=== PATIENT | female | born 1985 | race African-American/Black ===

== ENCOUNTER 2017-04-03 20:09 | Emergency (ER) | payer SELFPAY ==
[2017-04-03] MEDS ORDERED: FAMOTIDINE INJ/PF 20 MG/2 ML SDV IV ONE (20:54)
[2017-04-03] MEDS ORDERED: DIPHENHYDRAMINE HCL 50 MG/ML VIAL IV ONE (20:54)
[2017-04-03] MEDS ORDERED: METHYLPREDNISOLONE INJ 125 MG/2 ML SDV IV ONE (20:54)
--- NOTE | 2017-04-03 20:56 | ER Document Report ---
ED General - General Chief Complaint: Numbness Stated Complaint: POSSIBLE ALLERGIC REACTION Time Seen by Provider: 04/03/17 20:35 Notes: Patient is a 32 year old female who presents to the ED via EMS complaining of right sided numbness and weakness. Patient states she was at work and had taken her zyprexa late at 7pm and then at 745pm, she started developing symptoms of right sided facial itching/numbness that then progress to her whole right side feeling numb. She states she went to the back to get something to drink b/c she thought her blood sugar was low, she states she had difficulty swallowing her drink, at that time she requested EMS be called. They arrived at 815pm, she received IV benadryl and had 75% improvment in her symptoms, she states the only remaining symptom was tinging around her mouth. She states she wasnt sure if this was an axiety attack which she is diagnosed with but has never had one present like this before. At this time, she states she feels better but not 100%. Still with residual tingling around her mouth and that it feels weird to talk. But denies any weakness, difficulty swallowing or speaking. LMP: 03/22/2017 PMH: hypoglycemia, bipolar, depression and anxiety PSH: nicole, gastric bypass, appendectomy SH: denies tobacco, etoh or drug use A: vicodin and toradol MEDS: lamictal, haldol, prozac and zyprexa. She states that the lamictal, haldol and zyprexa are all recently started, states that she has taken both lamictal and haldol before but is new to zyprexa TRAVEL OUTSIDE OF THE [place] IN LAST 30 DAYS: No Past Medical History - Social History Smoking Status: Never Smoker Family History: Reviewed & Not Pertinent Patient has suicidal ideation: No Patient has homicidal ideation: No Renal/ Medical History: Denies: Hx Peritoneal Dialysis Review of Systems - Review of Systems Notes: REVIEW OF SYSTEMS: CONSTITUTIONAL : Denies fever, chills, or sweats. Denies recent illness. EENT: Denies eye, ear, throat, or mouth pain or symptoms. Denies nasal or sinus congestion or discharge. Denies throat, tongue, or mouth swelling or difficulty swallowing. CARDIOVASCULAR: Denies chest pain. Denies palpitations or racing or irregular heart beat. Denies ankle edema. RESPIRATORY: Denies cough, cold, or chest congestion. Denies shortness of breath, difficulty breathing, or wheezing. GASTROINTESTINAL: Denies abdominal pain or distention. Denies nausea, vomiting , or diarrhea. Denies blood in vomitus, stools, or per rectum. Denies black, tarry stools. Denies constipation. GENITOURINARY: Denies difficulty urinating, painful urination, burning, frequency, blood in urine, or discharge. FEMALE GENITOURINARY: Denies vaginal bleeding, heavy or abnormal periods, irregular periods. Denies vaginal discharge or odor. MUSCULOSKELETAL: Denies any muscle spasms, difficulty walking, extremity pain SKIN: Denies rash, lesions or sores. HEMATOLOGIC : Denies easy bruising or bleeding. LYMPHATIC: Denies swollen, enlarged glands. NEUROLOGICAL: She HPI. Denies confusion or altered mental status. Denies passing out or loss of consciousness. Denies dizziness or lightheadedness. Denies headache. Denies problems with gait or speech. Denies numbness, or tingling. Denies seizures. PSYCHIATRIC: See HPI suicidal ideation, or homicidal ideation. ALL OTHER SYSTEMS REVIEWED AND NEGATIVE. Dictation was performed using [employer] voice recognition software Physical Exam - Vital signs Vitals: Temp Pulse Resp BP Pulse Ox 97.2 F 81 18 147/102 H 100 04/03/17 20:14 04/03/17 20:14 04/03/17 20:14 04/03/17 20:14 04/03/17 20:14 - General General appearance: Appears well, Alert In distress: None - HEENT Head: Normocephalic, Atraumatic Eyes: Normal Conjunctiva: Normal Extraocular movements intact: Yes Eyelashes: Normal Pupils: PERRL Ears: Normal External canal: Normal Tympanic membrane: Normal Sinus: Normal Nasal: Normal Mouth/Lips: Normal. No: Angioedema Mucous membranes: Normal Pharynx: Normal. No: Peritonsillar abscess, Retropharyngeal abscess, Potential airway comprom. Neck: Normal, Supple - Respiratory Respiratory status: No respiratory distress Chest status: Nontender Breath sounds: Normal Chest palpation: Normal - Cardiovascular Rhythm: Regular Heart sounds: Normal auscultation, S1 appreciated, S2 appreciated Murmur: No Gallop: None auscultated Pulses: Normal: Radial, Dorsalis pedis Normal capillary refill: Yes - Abdominal Inspection: Normal Distension: No distension Bowel sounds: Normal Tenderness: Nontender Organomegaly: No organomegaly - Extremities General upper extremity: Normal inspection, Nontender, Normal color, Normal ROM , Normal strength, Normal temperature General lower extremity: Normal inspection, Nontender, Normal color, Normal ROM , Normal strength, Normal temperature, Normal weight bearing. No: Ender's sign - Neurological Neuro grossly intact: Yes Cognition: Normal Orientation: AAOx4 [place] Coma Scale Eye Opening: Spontaneous [place] Coma Scale Verbal: Oriented [place] Coma Scale Motor: Obeys Commands Karolina Coma Scale Total: 15 Speech: Normal Cranial nerves: Normal. 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 No: Weakness Sensory: Normal - Psychological Associated symptoms: Normal affect, Normal mood. No: Anxious, Confused - Skin Skin Temperature: Warm Skin Moisture: Dry Skin Color: Normal Skin Turgor: Elastic Course - Re-evaluation Re-evalutation: 04/04/17 20:45 Patient is a 32-year-old female who is hemodynamically stable, no acute distress and afebrile. Presentation consistent with allergic reaction given symptoms subsided after benadryl. patient medicated for allergic reaction while work up pending. 04/04/17 01:13 Patient presents with symptoms consistent with an allergic reaction without anaphylaxis. Vitals otherwise within normal limits at time of arrival. No respiratory, GI, cardiovascular, or oral pharyngeal symptoms. Patient received solumedrol, benadryl and pepcid. This did resolve the patients symptoms 100%. Will recommend ongoing antihistamine therapy as an outpatient. No evidence of focal neurological defects, CT normal. At this time will discharge with return precautions and follow-up recommendations. Verbal discharge instructions given a the bedside and opportunity for questions given. Medication warnings reviewed. Patient is in agreement with this plan and has verbalized understanding of return precautions and the need for primary care follow-up in the next 24-72 hours. - Vital Signs Vital signs: Temp Pulse Resp BP Pulse Ox 97.2 F 95 18 149/93 H 99 04/03/17 20:14 04/03/17 23:00 04/03/17 23:00 04/03/17 23:00 04/03/17 23:00 - Laboratory Result Diagrams: 04/03/17 21:25 04/03/17 21:25 Laboratory results interpreted by me: 04/03/17 04/03/17 04/03/17 20:30 21:25 21:25 Hgb 11.6 L Hct 35.6 L RDW 14.1 H Carbon Dioxide 17 L AST 54 H Urine Blood SMALL H - Diagnostic Test Radiology reviewed: Image reviewed, Reports reviewed Discharge - Discharge Clinical Impression: Allergic reaction caused by a drug Qualifiers: Encounter type: initial encounter Qualified Code(s): T78.40XA - Allergy, unspecified, initial encounter Condition: Good Disposition: HOME, SELF-CARE Additional Instructions: Please stop taking your Zyprexa, follow up with Dr. Solomon on Tuesday regarding today's visit ACUTE ALLERGIC REACTION: Your symptoms are due to an allergic reaction. Allergy can cause hives, swelling of the hands, feet, and face, hoarseness, and difficulty swallowing or breathing. It may be due to exposure to medication, animal dander, foods, infection, or insect bites. Medication is a common cause, even when prior use of this same medication caused no problems. Acute treatment may include adrenalin and antihistamines. Usually, the specific allergic agent can't be identified unless repeated episodes occur. Home treatment includes the following: (1) Stop any suspicious medications. This will be discussed with you. (2) Oral antihistamines for the next four to five days. Example, diphenhydramine (Benadryl) every four hours. (3) You may also use cimetidine (Tagamet), ranitidine (Zantac), or famotidine ( Pepcid) every four hours if diphenhydramine is not controlling itching and hives. (4) Avoid aspirin until the hives completely disappear. (5) Avoid hot baths or showers until the hives are completely gone. Call the doctor if faintness, difficulty swallowing, tightness in the chest , or wheezing occurs. STEROID MEDICATION INJECTION: You have been given an injection of medicine of the cortisone/steroid class. This medication is used to control inflammation or allergy. It is often continued as a pill for a short period of time, until the acute process subsides. There are usually no side effects from short-term use of cortisone-like medications. Some persons feel an increased sense of well-being and are not sleepy at bedtime. Long-term use of cortisone medications is best avoided, unless required for a severe condition. If your condition does not remit, or relapses after the course of corticosteroid medication, you should consult your physician. ANTIHISTAMINES: An antihistamine has been given and/or prescribed to control your symptoms. Antihistamines are used for many reasons, including itching, watering eyes, runny nose, allergic swelling, hives, and insect stings. Antihistamines may cause drowsiness, especially with the first dose. Do not operate machinery or drive while under the effects of the medication. Other common side effects include dry mouth and eyes. In older persons, antihistamines can occasionally cause urinary retention, constipation, and trouble focusing the eyes. Do not combine the medication with alcohol, or with any other medication without talking to your doctor. FOLLOW-UP CARE: If you have been referred to a physician for follow-up care, call the physician s office for an appointment as you were instructed or within the next two days. If you experience worsening or a significant change in your symptoms, notify the physician immediately or return to the Emergency Department at any time for re-evaluation. Forms: Elevated Blood Pressure, Return to Work
[2017-04-03 21:51] LABS: ABSOLUTE BASOPHILS # (AUTO) 0.1 10^3/uL (0.0-0.2); ABSOLUTE EOSINOPHILS # (AUTO) 0.2 10^3/uL (0.0-0.6); ABSOLUTE LYMPHOCYTES (AUTO) 1.3 10^3/uL (0.5-4.7); ABSOLUTE MONOCYTES (AUTO) 0.5 10^3/uL (0.1-1.4); ABSOLUTE NEUT (AUTO) 2.5 10^3/uL (1.7-8.2); BASOPHILS % (AUTO) 1.1 % (0-2); EOSINOPHILS % (AUTO) 3.8 % (0-6); HEMATOCRIT 35.6 % (36.0-47.0); HEMOGLOBIN 11.6 g/dL (12.0-15.5); HGB HCT DIFFERENCE -0.8; LYMPHOCYTES % (AUTO) 28.2 % (13-45); MEAN CORPUSCULAR HEMOGLOBIN 27.1 pg (27.0-33.4); MEAN CORPUSCULAR HGB CONC 32.5 g/dL (32.0-36.0); MEAN CORPUSCULAR VOLUME 84 fl (80-97); MONOCYTES % (AUTO) 11.8 % (3-13); RED BLOOD COUNT 4.26 10^6/uL (3.72-5.28); RED CELL DISTRIBUTION WIDTH 14.1 % (11.5-14.0); SEGMENTED NEUTROPHILS % (AUTO) 55.1 % (42-78); WHITE BLOOD COUNT 4.5 10^3/uL (4.0-10.5)
[2017-04-03 21:52] LABS: ALANINE AMINOTRANSFERASE 47 U/L (9-52); ALBUMIN 4.4 g/dL (3.5-5.0); ALKALINE PHOSPHATASE 84 U/L (38-126); ANION GAP 14 (5-19); ASPARTATE AMINO TRANSFERASE 54 U/L (14-36); BILIRUBIN,DIRECT 0.4 mg/dL (0.0-0.4); BILIRUBIN,TOTAL 0.4 mg/dL (0.2-1.3); BLOOD UREA NITROGEN 11 mg/dL (7-20); CALCIUM 9.3 mg/dL (8.4-10.2); CARBON DIOXIDE 17 mmol/L (22-30); CHLORIDE 106 mmol/L (98-107); CREATININE RESULT 0.83 mg/dL (0.52-1.25); GLUCOSE 78 mg/dL (75-110); SODIUM 137.4 mmol/L (137-145)
[2017-04-03 22:04] LABS: APPEARANCE,URINE CLEAR; BILIRUBIN,URINE NEGATIVE (NEGATIVE); GLUCOSE, URINE NEGATIVE (NEGATIVE); KETONES,URINE NEGATIVE (NEGATIVE); LEUKOCYTE ESTERASE,URINE NEGATIVE (NEGATIVE); NITRITE,URINE NEGATIVE (NEGATIVE); PROTEIN,URINE NEGATIVE (NEGATIVE); UROBILINOGEN,URINE NEGATIVE mg/dL (<2.0)
--- NOTE | 2017-04-03 22:08 | RADIOLOGY REPORT (SQ) ---
EXAM DESCRIPTION: CT HEAD WITHOUT COMPLETED DATE/TIME: 04/03/2017 9:51 pm REASON FOR STUDY: right sided numbness COMPARISON: None. TECHNIQUE: Axial images acquired through the brain without intravenous contrast. Images reviewed wi th bone, brain and subdural windows. Images stored on PACS. All CT scanners at this facility use dose modulation, iterative reconstruction, and/or weight based d osing when appropriate to reduce radiation dose to as low as reasonably achievable (ALARA). [facility]: Dose Right [facility]: CareDose [facility]: Dose Right [facility]: Teradose 4D [facility]: Smart Technologies RADIATION DOSE: Up-to-date CT equipment and radiation dose reduction techniques were employed. CTDIv ol: 64.6 mGy. DLP: 1163 mGy-cm. mGy. LIMITATIONS: None. FINDINGS: VENTRICLES: Normal size and contour. CEREBRUM: No masses. No hemorrhage. No midline shift. No evidence for acute infarction. Normal gra y/white matter differentiation. No areas of low density in the white matter. CEREBELLUM: No masses. No hemorrhage. No alteration of density. No evidence for acute infarction. EXTRAAXIAL SPACES: No fluid collections. No masses. ORBITS AND GLOBE: No intra- or extraconal masses. Normal contour of globe without masses. CALVARIUM: No fracture. PARANASAL SINUSES: No fluid or mucosal thickening. SOFT TISSUES: No mass or hematoma. OTHER: No other significant finding. IMPRESSION: NORMAL BRAIN CT WITHOUT CONTRAST. COMMENT: Quality ID # [id number]: Final reports with documentation of one or more dose reduction techniques (e.g., Automated exposure control, adjustment of the mA and/or kV according to patient size, use of iterative reconstruction technique) TECHNICAL DOCUMENTATION: JOB ID: [id number]- All Rights Reserved
[2017-04-03 23:19] VITALS: BP 149/93
--- NOTE | 2017-04-03 23:25 | EKG REPORT ---
SEVERITY:- BORDERLINE ECG - SINUS RHYTHM PROBABLE LEFT ATRIAL ABNORMALITY : Confirmed by: Sarah Tavarez 03-Apr-2017 23:24:24
== END 2017-04-03 23:00 | disposition home or self-care (01) ==
LOC: ER 20:09
DX: R20.0 Anesthesia of skin (principal); R53.1 Weakness; Z79.899 Other long term (current) drug therapy; F31.9 Bipolar disorder, unspecified; F32.9 Major depressive disorder, single episode, unspecified; F41.9 Anxiety disorder, unspecified; T78.40XA Allergy, unspecified, initial encounter; X58.XXXA Exposure to other specified factors, initial encounter
CPT/HCPCS: 93005; 99285; 96374; 96375; 36415; 84702; 85025; 80053; 81001; 70450; 93010; J1200; J2930; S0028

== ENCOUNTER 2017-09-23 11:22 | Emergency (ER) | payer SELFPAY ==
--- NOTE | 2017-09-23 11:44 | ER Document Report ---
ED Psych Disorder / Suicide - General TRAVEL OUTSIDE OF THE [place] IN LAST 30 DAYS: No <PIEDAD CLAY Kelsi - Last Filed: 09/23/17 11:44> - General Mode of Arrival: Ambulatory Information source: Patient - HPI Patient complains to provider of: Suicidal ideation - pt has extensive psych history who says she is now having thoughts of hurting herself <VANDANA LIM - Last Filed: 09/23/17 11:47> - General Chief Complaint: Psych Problem Stated Complaint: PSYCH EVAL Time Seen by Provider: 09/23/17 11:43 - Related Data Allergies/Adverse Reactions: No Known Allergies Allergy (Verified 09/23/17 11:30) Past Medical History - Social History Family History: Reviewed & Not Pertinent Renal/ Medical History: Denies: Hx Peritoneal Dialysis <CARMEN CLAYDIMAS Dolan - Last Filed: 09/23/17 11:44> - Vital signs Vitals: Temp Pulse Resp BP Pulse Ox 98.8 F 88 16 111/77 99 09/23/17 11:35 09/23/17 11:35 09/23/17 11:35 09/23/17 11:35 09/23/17 11:35 - Vital Signs Vital signs: Temp Pulse Resp BP Pulse Ox 98.8 F 88 16 111/77 99 09/23/17 11:35 09/23/17 11:35 09/23/17 11:35 09/23/17 11:35 09/23/17 11:35
[2017-09-23] MEDS ORDERED: OLANZAPINE 5 MG TABLET PO ONE (11:45)
[2017-09-23] MEDS ORDERED: BENZTROPINE MESYLATE 1 MG TABLET PO ONE (11:46)
[2017-09-23 12:54] LABS: AMORPHOUS SEDIMENT,URINE TRACE /HPF; APPEARANCE,URINE CLOUDY; BILIRUBIN,URINE NEGATIVE (NEGATIVE); COLOR,URINE YELLOW; GLUCOSE, URINE NEGATIVE (NEGATIVE); KETONES,URINE NEGATIVE (NEGATIVE); LEUKOCYTE ESTERASE,URINE MODERATE (NEGATIVE); NITRITE,URINE NEGATIVE (NEGATIVE); PROTEIN,URINE 30 mg/dL (NEGATIVE); URINE SPECIFIC GRAVITY 1.026; UROBILINOGEN,URINE NEGATIVE mg/dL (<2.0)
[2017-09-23 13:11] LABS: URINE AMPHETAMINES SCREEN NEGATIVE; URINE BARBITURATES SCREEN NEGATIVE; URINE BENZODIAZEPINES SCREEN NEGATIVE; URINE COCAINE SCREEN NEGATIVE; URINE MARIJUANA (THC) SCREEN NEGATIVE; URINE METHADONE SCREEN NEGATIVE; URINE PHENCYCLIDINE SCREEN NEGATIVE
--- NOTE | 2017-09-23 13:14 | EKG REPORT ---
SEVERITY:- NORMAL ECG - SINUS RHYTHM : Confirmed by: Cresencio Young MD 23-Sep-2017 13:13:37
[2017-09-23 13:47] LABS: ABSOLUTE EOSINOPHILS # (AUTO) 0.2 10^3/uL (0.0-0.6); ABSOLUTE LYMPHOCYTES (AUTO) 1.3 10^3/uL (0.5-4.7); ABSOLUTE MONOCYTES (AUTO) 0.4 10^3/uL (0.1-1.4); ABSOLUTE NEUT (AUTO) 3.1 10^3/uL (1.7-8.2); BASOPHILS % (AUTO) 0.9 % (0-2); EOSINOPHILS % (AUTO) 4.4 % (0-6); HEMATOCRIT 33.8 % (36.0-47.0); LYMPHOCYTES % (AUTO) 26.4 % (13-45); MEAN CORPUSCULAR HEMOGLOBIN 26.3 pg (27.0-33.4); MEAN CORPUSCULAR HGB CONC 32.6 g/dL (32.0-36.0); MEAN CORPUSCULAR VOLUME 81 fl (80-97); MONOCYTES % (AUTO) 8.1 % (3-13); PLATELET COUNT 302 10^3/uL (150-450); RED BLOOD COUNT 4.19 10^6/uL (3.72-5.28); RED CELL DISTRIBUTION WIDTH 15.6 % (11.5-14.0); SEGMENTED NEUTROPHILS % (AUTO) 60.2 % (42-78); TOTAL CELLS COUNTED % (AUTO) 100 %; WHITE BLOOD COUNT 5.1 10^3/uL (4.0-10.5)
--- NOTE | 2017-09-23 13:49 | ER Document Report ---
ED Psych Disorder / Suicide - General Chief Complaint: Psych Problem Stated Complaint: PSYCH EVAL Time Seen by Provider: 09/23/17 11:43 Notes: This is a 32-year-old [place]ien female with history of bipolar disorder. Reportedly having medication changes by her outpatient psychiatric management team. She was on Seroquel 400 mg but apparently that was making her too sedated so the Seroquel was decreased to 300 mg at night daily. Began having increased cycling. Began having increasing thoughts of suicidal ideation. Patient states that she became more concerned because she wanted to renew her gun license so that she could kill herself. Also, decided she wanted to hang herself today so got a rope and was putting a noose around her neck. She did call 911. She was quite agitated by report. Was able to be calm down enough to be seen in the emergency department. Patient is voluntarily here at this time. Requesting help with management of her medications due to her severe mental health disorders. States that she has been admitted to psychiatric hospitals 9 times since she was 6 years of age. Denies any ingestion of toxic substances. Denies any intentional harm other than placing the rope around her neck today. TRAVEL OUTSIDE OF THE [place] IN LAST 30 DAYS: No - HPI Patient complains to provider of: Agitated, Suicidal ideation, Suicidal plan Quality of pain: No pain Severity: Severe Suicide Risk Factors: Bipolar, Chronic illness, Depressed, Organized plan, Prior suicide attempt Situational problems related to: Other - Occasion changes Suicide Attempt Method: Hanging, Shooting, Other - Parking her car in a busy highway trying to get hit is a thought that she has had recently Overdose of: No: Acetominophen, Alcohol, Anticholinergic, Anti-depressants, Benzodiazepine, Salicylate, Tricyclic Antidepressant, Other Associated symptoms: Depressed - Related Data Allergies/Adverse Reactions: No Known Allergies Allergy (Verified 09/23/17 11:30) Past Medical History - General Information source: Patient - Social History Smoking Status: Never Smoker Cigarette use (# per day): No Frequency of alcohol use: None Drug Abuse: None Lives with: Family Family History: Reviewed & Not Pertinent Patient has suicidal ideation: Yes Patient has homicidal ideation: No - Past Medical History Cardiac Medical History: Reports: None Pulmonary Medical History: Reports: None EENT Medical History: Reports: None Neurological Medical History: Reports: None Endocrine Medical History: Reports: None Renal/ Medical History: Denies: Hx Peritoneal Dialysis Malignancy Medical History: Reports: None GI Medical History: Reports: None Musculoskeltal Medical History: Reports None Psychiatric Medical History: Reports: Hx Bipolar Disorder, Hx Depression Traumatic Medical History: Reports: None Past Surgical History: Reports: Hx Appendectomy, Hx Cholecystectomy Review of Systems - Review of Systems Constitutional: denies: Fever, Malaise, Weakness EENT: denies: Eye pain, Ear pain, Throat swelling Cardiovascular: denies: Chest pain, Palpitations, Heart racing Respiratory: denies: Cough, Hurts to breathe, Short of breath, Wheezing Gastrointestinal: denies: Abdominal pain, Diarrhea, Nausea, Vomiting Genitourinary: denies: Burning, Dysuria, Discharge Female Genitourinary: denies: , Irregular period, Vaginal bleeding Musculoskeletal: denies: Back pain, Gout, Joint pain Skin: denies: Dryness, Lesions, Lumps, Rash Hematologic/Lymphatic: denies: Anemia, Blood clots, Easy bleeding Neurological/Psychological: Depression, Suicidal ideation. denies: Anxiety, Seizure, Lost consciousness, Headaches Physical Exam - Vital signs Vitals: Temp Pulse Resp BP Pulse Ox 98.8 F 88 16 111/77 99 09/23/17 11:35 09/23/17 11:35 09/23/17 11:35 09/23/17 11:35 09/23/17 11:35 Interpretation: Normal - General General appearance: Appears well, Alert - HEENT Head: Normocephalic, Atraumatic Eyes: Normal Pupils: PERRL - Respiratory Respiratory status: No respiratory distress Chest status: Nontender Breath sounds: Normal Chest palpation: Normal - Cardiovascular Rhythm: Regular Heart sounds: Normal auscultation Murmur: No - Abdominal Inspection: Normal Distension: No distension Bowel sounds: Normal Tenderness: Nontender Organomegaly: No organomegaly - Back Back: Normal, Nontender - Extremities General upper extremity: Normal inspection, Nontender, Normal color, Normal ROM , Normal temperature General lower extremity: Normal inspection, Nontender, Normal color, Normal ROM , Normal temperature, Normal weight bearing. No: Ender's sign - Neurological Neuro grossly intact: Yes Cognition: Normal Orientation: AAOx4 [place] Coma Scale Eye Opening: Spontaneous [place]ol[place] Coma Scale Verbal: Oriented [place] Coma Scale Motor: Obeys Commands Karolina Coma Scale Total: 15 Speech: Normal Motor strength normal: LUE, RUE, LLE, RLE Sensory: Normal - Psychological Associated symptoms: Normal affect, Normal mood - Skin Skin Temperature: Warm Skin Moisture: Dry Skin Color: Normal Course - Re-evaluation Re-evalutation: 09/23/17 15:06 Labs are fairly unremarkable. Mental health seen patient. At this time we will do medication adjustment while observing in the ER. Patient is here voluntarily and is cooperating at this time. Patient does have mental health follow-up. If the medication adjustments that we make here seem to be effective will likely be able to discharge in 24-48 hours. If not, may need to find placement. Starting on Zyprexa, clonidine, Cogentin, Seroquel. - Vital Signs Vital signs: Temp Pulse Resp BP Pulse Ox 98.8 F 88 16 111/77 99 09/23/17 11:35 09/23/17 11:35 09/23/17 11:35 09/23/17 11:35 09/23/17 11:35 - Laboratory Result Diagrams: 09/23/17 13:37 09/23/17 13:37 Laboratory results interpreted by me: 09/23/17 09/23/17 09/23/17 12:10 13:37 13:37 Hgb 11.0 L Hct 33.8 L MCH 26.3 L RDW 15.6 H Chloride 111 H Carbon Dioxide 20 L Urine Protein 30 H Urine Blood MODERATE H Ur Leukocyte Esterase MODERATE H - EKG Interpretation by Mi EKG shows normal: Sinus rhythm, [place], Intervals, QRS Complexes, ST-T Waves Discharge - Discharge Clinical Impression: Bipolar disorder current episode depressed Qualifiers: Current episode severity: moderate Qualified Code(s): F31.32 - Bipolar disorder , current episode depressed, moderate
[2017-09-23 14:06] LABS: ALANINE AMINOTRANSFERASE 32 U/L (9-52); ALBUMIN 4.6 g/dL (3.5-5.0); ALKALINE PHOSPHATASE 79 U/L (38-126); ANION GAP 11 (5-19); ASPARTATE AMINO TRANSFERASE 28 U/L (14-36); BILIRUBIN,DIRECT 0.1 mg/dL (0.0-0.4); BILIRUBIN,TOTAL 0.2 mg/dL (0.2-1.3); BLOOD UREA NITROGEN 11 mg/dL (7-20); CALCIUM 9.1 mg/dL (8.4-10.2); CARBON DIOXIDE 20 mmol/L (22-30); CHLORIDE 111 mmol/L (98-107); GLUCOSE 82 mg/dL (75-110); POTASSIUM 4.2 mmol/L (3.6-5.0); SODIUM 141.5 mmol/L (137-145); TOTAL PROTEIN 7.5 g/dL (6.3-8.2)
[2017-09-23 14:08] LABS: ALCOHOL < 10 mg/dL (NONE DETECTED)
[2017-09-23] MEDS: OLANZAPINE 5 MG TABLET PO PRN (19:05)
[2017-09-23] MEDS: BENZTROPINE MESYLATE 1 MG TABLET PO PRN (19:05)
[2017-09-23] MEDS: CLONIDINE HCL 0.1 MG TABLET PO SCH (21:55)
[2017-09-23] MEDS: QUETIAPINE FUMARATE 100 MG TABLET PO SCH (21:55)
[2017-09-24] MEDS: OLANZAPINE 5 MG TABLET PO PRN ×4 (01:49→21:17)
--- NOTE | 2017-09-24 10:08 | ER Document Report ---
Doctor's Note Notes: 09/24/17 10:07 32-year-old female with past medical history of bipolar with a recent medication change decreasing the dose of Seroquel who presented to the emergency department with suicidal ideations, having a noose around her neck, with thoughts of re issuing her gun license to commit suicide. Labs as recorded. Vital signs as recorded. Patient denies any urinary symptoms. Awaiting psychology evaluation. 09/24/17 16:32 Patient is still calm and cooperative. Medication adjustments have been made. Still attempting to find placement.
[2017-09-24] MEDS: BENZTROPINE MESYLATE 1 MG TABLET PO PRN (13:12)
--- NOTE | 2017-09-24 16:16 | PSYCHOLOGICAL NOTE ---
Psych Note - Psych Note Psych Note: Reason for Consult: medication interaction; Suicidal ideation Consent permissions: Donis Montez, spouse, Pt comes to ed brought by KIANNA under advisement that Dr Ramírez will see patient. per Jeff in mental health pt is here for medication stabilization and psych observation overnight. Patient disclosed that she had a medication adjustment 1 week ago and now is suffering from suicidal ideation. Patient admits that upon mobile crisis arrival she had a noose around her neck. Patient denies wanting to and is requesting assistance for stabilization. 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 Patient is alert and orientated to person, place, time and circumstance. Mood is anxious with psychomotor agitation i.e. handshaking readjusting of legs etc. Patient endorses suicidal ideation with para-suicidal gesture stating "I do not want to ;" suffering from negative reaction to medication adjustments. Patient denies homicidal ideation. Delusions are absent behaviors congruent with intact reality based presentation i.e. organized, linear, rational thinking. Intellectual abilities appear to be high average range. Eye contact was well-maintained. Conversational speech was soft but easily understood. Attention and concentration are good. Insight, judgment, impulse control is fair as evidenced by freely coming into [facility] ED for assistance with symptoms. Medication recommendations per [facility]'s contracted psychiatrist, MD Yamel are as follows 1. Seroquel 300 mg nightly 2. Clonidine 0.1 mg nightly 3. Zyprexa 5 mg every 6 as needed 4. Cogentin 1 mg daily as needed 296.89 (F31.81) bipolar 2 disorder per history provided by patient Impression\\plan: Patient is recommended for overnight mental health hold for observation. Patient discloses difficulties in suicidal ideation since medication adjustments are made 1 week ago. Patient will be reevaluated. Dr. Ramírez was consulted and the care management patient; attending physician is agreement with recommendations and disposition.
--- NOTE | 2017-09-24 16:20 | PSYCHOLOGICAL NOTE ---
Psych Note - Psych Note Psych Note: Reason for Consult: medication interaction; Suicidal ideation Consent permissions: Donis Montez, spouse, Pt comes to ed brought by KIANNA under advisement that Dr Ramírez will see patient. per Jeff in mental health pt is here for medication stabilization and psych observation overnight. Conducted checking with patient Patient disclosed that she no longer feels manic. She continues state that she has noticed approximately 3-4 hours after waking up from receiving Zyprexa her suicidal ideation returns. Patient states "I am not 60% yet." Patient does not feel she is stable as of yet and agrees for continued stay with adjustments made. Medication recommendations per [facility]'s contracted psychiatrist, MD Yamel are as follows 1. Seroquel 300 mg nightly 2. Clonidine 0.1 mg nightly 3. Zyprexa 5 mg every morning 4. Cogentin 1 mg daily 5. Zyprexa 5 mg every 8 as needed 296.89 (F31.81) bipolar 2 disorder per history provided by patient Impression\\plan: Patient is recommended for overnight mental health hold for observation. Patient discloses difficulties in suicidal ideation since medication adjustments are made 1 week ago. Medication adjustments have been provided. patient will be reevaluated. Dr. Ramírez was consulted and the care management patient; attending physician is agreement with recommendations and disposition.
[2017-09-24] MEDS: CLONIDINE HCL 0.1 MG TABLET PO SCH (21:15)
[2017-09-24] MEDS: QUETIAPINE FUMARATE 100 MG TABLET PO SCH (21:15)
[2017-09-25] MEDS ORDERED: OLANZAPINE 5 MG TABLET PO SCH (08:00)
[2017-09-25] MEDS: OLANZAPINE 5 MG TABLET PO PRN (08:07)
[2017-09-25 09:01] VITALS: BP 100/67
--- NOTE | 2017-09-25 09:47 | PSYCHOLOGICAL NOTE ---
Psych Note - Psych Note Psych Note: Reason for consult: suicidal ideation Contact Permissions: Donis Montez, Spouse Patient denies SI/HI.Clinician utilized solution focused brief therapy techniques to assist client in gauging improvement, utilizing a 1-10 scale with 10 being "better". Patient explained that she felt she was at a "10" and attributes the improvement to medication adjustments and support from her . Patient reports she is feeling 97 % better. Patient reports her can tell when she isn't doing well, has been supportive and will continue to be supportive in her plan of care. 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 Patient reports she is able to recognize when her depression is worsening as evidenced by not being able to get out of the bed, not having energy and not writing her book. Patient reports she was able to sleep, and attributes her sleep to the Clonidine.Patient reports although her suicidal ideation are not present she is experiencing anxiety, ( fidgeting, irritability) and states that she has a history of panic attacks ( two types) which consists of feeling like she is dying, tightening of her chest, or where she isn't able to do anything and is irritable. Patient reports at times she is able to conceal her symptoms because of the negative stigma associated with mental health, and labels this as her "defense mechanism". Patient reports that she wants to go to work tomorrow, doesn't want to miss, and that she has two kittens she needs to go home to and care for. Patient reports prior to coming to the ED she had reached out [facility] Dr. Crawley and Dr. Calderón to report her suicidal ideation and explain she felt they were due to the medication changes that occurred, and reports they did not get back to her for three days. Patient reports the pharmacist she spoke to called the police to check on her and as they were knocking on the door she had tied a noose around her neck and was already standing on the stool she had planned to kick out from underneath her. Patient reports that at the time she stated to herself " what was the point" of trying to reach out and get help when no one cared for her life, and that her life did not mean anything. Patient reports she recognized that her medications had caused her "bipolar disorder to swing", and was hoping that by reaching out she would be able to get help. Patient reports she has had 4 therapists in the past and the most effective therapist was located in [place], patient reports she is interested in more resources outside of the [place] area as her and her are able to commute to see a therapist even if it is just once a month due to therapy being helpful in the past. Patient reports she is able to think rationally now but previously in the depth of her depression ( e.g. stating "down the rabbit hole") she is not able to rationalize. Collateral Information: Donis ( Spouse) Patient's reports he recognizes when patient is feeling depressed. Patient's reports he will monitor patient at their home and assist with medication reminders. Patient's reports if he feels that patient is having SI he will bring her into the ED. Patient's reports he feels her SI stems from an error made by the psychiatric provider from [facility], he explained that the physician abruptly decreased patient's dosages and would not get back to them when they called in crisis for a total of 3 days.Patient's reports the pharmacist called the conservation coordinator department to check on patient and made it just in time before she was able to complete the suicide. Patient's reports patient is preoccupied with mental health advocating, their two cats, and classes. Patient's reports he will transport patient to her therapy appointments and is willing to commute. Medication recommendations per [facility]'s contracted psychiatrist, Dr. Yamel MD are as follows 1. Seroquel 300 mg nightly 2. Clonidine 0.1 mg nightly 3. Zyprexa 5 mg every morning 4. Cogentin 1 mg daily 5. Zyprexa 5 mg every 8 as needed Diagnosis: 296.89 (F31.81) bipolar 2 disorder per history provided by patient Impression/Plan: Patient is psychiatrically cleared by mental health and Dr. Ramírez. Recommendation for patient to follow up with an outpatient therapy provider. Patient was provided mental health resources. Patient's has verbally agreed to assist in safe discharge planning to include monitoring patient, assisting with medication administration, and transporting her to outpatient provider. Consulted with Dr. Ramírez regarding the management and care of patient. Attending physician Dr. Kent in agreeance with final disposition.
[2017-09-25] MEDS ORDERED: BENZTROPINE MESYLATE 1 MG TABLET PO SCH (10:00)
--- NOTE | 2017-09-25 11:13 | ER Document Report ---
Doctor's Note Notes: 09/25/17 11:05 32-year-old female with past medical history of bipolar with a recent medication change decreasing the dose of Seroquel who presented to the emergency department with suicidal ideations, having a noose around her neck, with thoughts of reissuing her gun license to commit suicide. Vital signs as recorded. The behavioral health psychology team here has seen and evaluated the patient. They do not believe that the patient meets IVC criteria at this time. Patient is denying any and all suicidal or homicidal ideations. Patient lives with her who is a auto damage estimator. He is very comfortable with the patient going home. His phone number is [phone]. He will be here to order picker the patient. We have provided outpatient resources. They would like to review these resources before choosing one. We will start the patient on the medications that we have provided here at this facility for 1/2 month period until the patient is able to see an outpatient psychiatry counselor. Strict return precautions have been explained. Patient and understand these instructions.
== END 2017-09-25 13:39 | disposition home or self-care (01) ==
LOC: EEVIPCON 11:22 → ER 11:22
DX: F31.32 Bipolar disorder, current episode depressed, moderate (principal); Z79.899 Other long term (current) drug therapy
CPT/HCPCS: 36415; 80053; 80307; 81001; 81025; 84443; 85025; 87086; 93005; 93010; 99285

== ENCOUNTER 2018-10-24 14:28 | Emergency (ER) | payer SELFPAY ==
--- NOTE | 2018-10-24 15:15 | ER Document Report ---
ED Medical Screen (RME) - General Chief Complaint: Chest Pain Stated Complaint: SHOULDER PAIN Time Seen by Provider: 10/24/18 15:08 Primary Care Provider: VICKI HIRSCH MD [Primary Care Provider] - Follow up as needed Notes: Patient is a 33-year-old female that presents to the emergency department for chief complaint of chest pain. Patient recently was discharged from [facility] after having a stroke workup, which was reportedly negative according to the patient, but she was having pain in her neck, that radiated towards her chest today and wanted to have this evaluated as well. ROS: Other than noted above, the 12 point review of systems was reviewed with the patient and were negative, all pertinent findings are included in the HPI. PHYSICAL EXAMINATION: Vital signs reviewed. GENERAL: Well-appearing, well-nourished and in no acute distress. HEAD: Atraumatic, normocephalic. EYES: Pupils equal round extraocular movements intact, conjunctiva are normal. ENT: Nares patent NECK: Normal range of motion CV: Heart regular rate and rhythm LUNGS: No respiratory distress Musculoskeletal: Normal range of motion NEUROLOGICAL: Normal speech PSYCH: Normal mood, normal affect. MDM: Patient seen and examined for rapid initial assessment. Vital signs reviewed. A comprehensive ED assessment and evaluation of the patient, analysis of test results and completion of the medical decision making process will be conducted by additional ED providers. *Note is created using voice recognition software and may contain spelling, syntax or grammatical errors. TRAVEL OUTSIDE OF THE U.S[place] IN LAST 30 DAYS: No - Related Data Allergies/Adverse Reactions: No Known Allergies Allergy (Verified 09/23/17 11:30) Past Medical History Renal/ Medical History: Denies: Hx Peritoneal Dialysis Psychiatric Medical History: Reports: Hx Bipolar Disorder, Hx Depression Past Surgical History: Reports: Hx Appendectomy, Hx Cholecystectomy Physical Exam - Vital signs Vitals: Temp Pulse Resp BP Pulse Ox 98.1 F 66 18 129/89 H 100 10/24/18 14:41 10/24/18 14:41 10/24/18 14:41 10/24/18 14:41 10/24/18 14:41 Course - Vital Signs Vital signs: Temp Pulse Resp BP Pulse Ox 98.1 F 66 18 129/89 H 100 10/24/18 14:41 10/24/18 14:41 10/24/18 14:41 10/24/18 14:41 10/24/18 14:41 Doctor's Discharge - Discharge Referrals: VICKI HIRSCH MD [Primary Care Provider] - Follow up as needed
--- NOTE | 2018-10-24 15:51 | RADIOLOGY REPORT (SQ) ---
EXAM DESCRIPTION: CHEST SINGLE VIEW COMPLETED DATE/TIME: 10/24/2018 3:33 pm REASON FOR STUDY: chest pain COMPARISON: None. EXAM PARAMETERS: NUMBER OF VIEWS: One view. TECHNIQUE: Single frontal radiographic view of the chest acquired. RADIATION DOSE: NA LIMITATIONS: None. FINDINGS: LUNGS AND PLEURA: No opacities, masses or pneumothorax. No pleural effusion. MEDIASTINUM AND HILAR STRUCTURES: No masses. Contour normal. HEART AND VASCULAR STRUCTURES: Heart normal in size. Normal vasculature. BONES: No acute findings. HARDWARE: None in the chest. OTHER: No other significant finding. IMPRESSION: NO ACUTE RADIOGRAPHIC FINDING IN THE CHEST. TECHNICAL DOCUMENTATION: JOB ID: [id number] [employer]- All Rights Reserved Reading location - IP/workstation name: [email or web address]
[2018-10-24 18:28] LABS: ABSOLUTE EOSINOPHILS # (AUTO) 0.1 10^3/uL (0.0-0.6); ABSOLUTE LYMPHOCYTES (AUTO) 1.8 10^3/uL (0.5-4.7); ABSOLUTE MONOCYTES (AUTO) 0.3 10^3/uL (0.1-1.4); ABSOLUTE NEUT (AUTO) 2.7 10^3/uL (1.7-8.2); BASOPHILS % (AUTO) 0.9 % (0-2); EOSINOPHILS % (AUTO) 2.9 % (0-6); HEMATOCRIT 30.3 % (36.0-47.0); HEMOGLOBIN 9.8 g/dL (12.0-15.5); LYMPHOCYTES % (AUTO) 35.5 % (13-45); MEAN CORPUSCULAR HEMOGLOBIN 26.1 pg (27.0-33.4); MEAN CORPUSCULAR HGB CONC 32.3 g/dL (32.0-36.0); MEAN CORPUSCULAR VOLUME 81 fl (80-97); MONOCYTES % (AUTO) 6.9 % (3-13); PLATELET COUNT 253 10^3/uL (150-450); RED BLOOD COUNT 3.74 10^6/uL (3.72-5.28); RED CELL DISTRIBUTION WIDTH 16.8 % (11.5-14.0); SEGMENTED NEUTROPHILS % (AUTO) 53.8 % (42-78); TOTAL CELLS COUNTED % (AUTO) 100 %
[2018-10-24] MEDS ORDERED: METHOCARBAMOL 750 MG TABLET PO ONE (18:37)
[2018-10-24] MEDS ORDERED: HYDROCODONE/ACETAMINOPHEN 5-325 MG TABLET PO ONE (18:37)
[2018-10-24 18:52] LABS: ALANINE AMINOTRANSFERASE 32 U/L (9-52); ALBUMIN 3.5 g/dL (3.5-5.0); ALKALINE PHOSPHATASE 64 U/L (38-126); ANION GAP 8 (5-19); ASPARTATE AMINO TRANSFERASE 18 U/L (14-36); BILIRUBIN,DIRECT 0.3 mg/dL (0.0-0.4); BILIRUBIN,TOTAL 0.3 mg/dL (0.2-1.3); BLOOD UREA NITROGEN 10 mg/dL (7-20); CARBON DIOXIDE 24 mmol/L (22-30); CHLORIDE 106 mmol/L (98-107); GLUCOSE 71 mg/dL (75-110); POTASSIUM 3.8 mmol/L (3.6-5.0); SODIUM 138.3 mmol/L (137-145); TOTAL PROTEIN 6.6 g/dL (6.3-8.2)
--- NOTE | 2018-10-24 20:21 | ER Document Report ---
ED Cardiac - General Chief Complaint: Chest Pain Stated Complaint: SHOULDER PAIN Time Seen by Provider: 10/24/18 15:08 Primary Care Provider: VICKI HIRSCH MD [NO LOCAL MD] - Follow up as needed TRAVEL OUTSIDE OF THE U.S. IN LAST 30 DAYS: No - HPI Notes: Patient presents to the emergency department for evaluation of chest pain. Initially she complains of chest pain, but states it actually started in her neck. She had pain in her left posterior neck a few weeks ago. She was admitted to the hospital in [place]. She was admitted at that point for evaluation for possible CVA. She states she had that left side of her neck pain present while there and it resolved. Her pain returned a few days ago and is been getting worse. It is worsened with movement. She describes it as sharp. Is worsened with palpation. She denies any associated shortness of breath, nausea, diaphoresis, near syncope. - Related Data Allergies/Adverse Reactions: No Known Allergies Allergy (Verified 09/23/17 11:30) Past Medical History - General Information source: Patient - Social History Smoking Status: Never Smoker Family History: CAD Patient has suicidal ideation: No Patient has homicidal ideation: No Renal/ Medical History: Denies: Hx Peritoneal Dialysis Psychiatric Medical History: Reports: Hx Bipolar Disorder, Hx Depression Past Surgical History: Reports: Hx Appendectomy, Hx Cholecystectomy Review of Systems - Review of Systems Constitutional: No symptoms reported EENT: No symptoms reported Cardiovascular: See HPI Respiratory: No symptoms reported Gastrointestinal: No symptoms reported Genitourinary: No symptoms reported Musculoskeletal: See HPI Skin: No symptoms reported Neurological/Psychological: No symptoms reported Physical Exam - Vital signs Vitals: Temp Pulse Resp BP Pulse Ox 98.1 F 66 18 129/89 H 100 10/24/18 14:41 10/24/18 14:41 10/24/18 14:41 10/24/18 14:41 10/24/18 14:41 - Notes Notes: Vital signs reviewed, please refer to chart. Patient is normocephalic, atraumatic. Pupils equal round, reactive to light. Neck is supple without meningismus. Examination of the spine is no midline tenderness or step-off. She has paraspinal musculature tenderness noted on the left from C3 through C6. She is tender over the left trapezius muscle as well. She does have some tenderness over the left pectoral muscle, inferior to the clavicle. Heart is regular rate and rhythm. Lungs are clear to auscultation bilaterally. Abdomen is soft, nontender, normoactive bowel sounds throughout. Extremities without cyanosis, clubbing, edema. Peripheral pulses are equal. Skin is warm and dry. Patient is awake, alert, neurological exam is nonfocal. Course - Re-evaluation Re-evalutation: 10/24/18 20:19 Patient presented to the emergency department for evaluation of pain. She was placed on a monitoring analyst, laboratory investigations an EKG, imaging ordered. Laboratory investigations were unremarkable. EKG showed no acute ST changes. Her findings are most consistent with musculoskeletal pain. Her only significant risk factor is a family history. She is strongly encouraged to p ursue outpatient stress testing. She understands that no test performed here could rule out coronary artery disease. At this point she was treated for musculoskeletal symptoms. We will send her home with muscle relaxers and close follow-up. She is to return to the emergency department with worsening or new concerning symptoms of any sort. - Vital Signs Vital signs: Temp Pulse Resp BP Pulse Ox 98.1 F 66 10 L 122/83 100 10/24/18 14:41 10/24/18 14:41 10/24/18 18:00 10/24/18 17:01 10/24/18 17:01 - Laboratory Result Diagrams: 10/24/18 18:06 10/24/18 18:06 Laboratory results interpreted by me: 10/24/18 10/24/18 18:06 18:06 Hgb 9.8 L Hct 30.3 L MCH 26.1 L RDW 16.8 H Glucose 71 L - Diagnostic Test Radiology reviewed: Reports reviewed - No acute cardiopulmonary disease - EKG Interpretation by Me Additional EKG results interpreted by me: 10/24/18 20:20 Sinus mechanism with a rate of 67 bpm. Normal axis and intervals, no acute ST changes concerning for ischemia or infarction. Discharge - Discharge Clinical Impression: Chest wall pain, Neck pain Condition: Stable Instructions: Chest Wall Pain ([facility]) Additional Instructions: Take medication as prescribed. Follow-up with your primary care physician. You should pursue an outpatient stress test for further evaluation. Return to the emergency department with worsening or new concerning symptoms. Referrals: VICKI HIRSCH MD [NO LOCAL MD] - Follow up as needed
[2018-10-24 20:31] VITALS: BP 129/86
--- NOTE | 2018-10-24 21:51 | EKG REPORT ---
SEVERITY:- BORDERLINE ECG - SINUS RHYTHM BORDERLINE T ABNORMALITIES, ANTERIOR LEADS : Confirmed by: Pily Doherty MD 24-Oct-2018 21:49:24
== END 2018-10-24 20:37 | disposition home or self-care (01) ==
LOC: ER 14:28
DX: M54.2 Cervicalgia (principal); R07.89 Other chest pain; M25.512 Pain in left shoulder; Z90.49 Acquired absence of other specified parts of digestive tract
CPT/HCPCS: 93005; 99284; 36415; 85025; 80053; 84484; 71045; 93010; J3490

== ENCOUNTER 2019-03-24 09:57 | Emergency (ER) | payer OTHER, BC ==
[2019-03-24] MEDS ORDERED: KETOROLAC TROMETHAMINE 60 MG/2 ML SDV IM ONE (10:37)
[2019-03-24] MEDS ORDERED: LIDOCAINE 5% (700 MG) TRANSDERMAL ADH..PATCH TP ONE (10:38)
[2019-03-24] MEDS ORDERED: HYDROCODONE/ACETAMINOPHEN 5-325 MG (6 TAB/ER DISP) PO PRN (10:38)
[2019-03-24] MEDS ORDERED: ACETAMINOPHEN 325 MG TABLET PO ONE (10:38)
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
[2019-03-24 11:01] VITALS: BP 123/86
== END 2019-03-24 11:09 | disposition home or self-care (01) ==
LOC: ER 09:57
DX: M54.6 Pain in thoracic spine (principal); R51 Headache; V89.2XXA Person injured in unspecified motor-vehicle accident, traffic, initial encounter; Z98.84 Bariatric surgery status; Z90.49 Acquired absence of other specified parts of digestive tract
CPT/HCPCS: 99283; J1885

== ENCOUNTER 2019-09-11 08:22 | Emergency (ER) | payer BC, OTHER ==
[2019-09-11] MEDS ORDERED: ONDANSETRON HCL INJ/PF 4 MG/2 ML SDV IV ONE (09:32)
--- NOTE | 2019-09-11 09:32 | ER Document Report ---
ED Medical Screen (RME) - General Chief Complaint: Abdominal Pain Stated Complaint: ABDOMINAL PAIN Time Seen by Provider: 09/11/19 09:26 Mode of Arrival: Ambulatory Information source: Patient Notes: Patient presents complaining of fever for the past 4 days with nausea and vomiting. Patient reports right lower quadrant pain that started yesterday. Patient denies any urinary symptoms but does complain of some vaginal discharge. Patient states she has a history of ovarian cysts and suspects the pain is due to this. Patient also has a history of previous gastric bypass, cholecystectomy and appendectomy. I have greeted and performed a rapid initial assessment of this patient. A comprehensive ED assessment and evaluation of the patient, analysis of test results and completion of the medical decision making process will be conducted by additional ED providers. TRAVEL OUTSIDE OF THE U.S[place] IN LAST 30 DAYS: No - Related Data Allergies/Adverse Reactions: Penicillins Allergy (Verified 09/11/19 09:27) pineapple Allergy (Verified 09/11/19 09:26) Past Medical History Renal/ Medical History: Denies: Hx Peritoneal Dialysis Psychiatric Medical History: Reports: Hx Bipolar Disorder, Hx Depression Past Surgical History: Reports: Hx Abdominal Surgery - gastric bypass, Hx Appendectomy, Hx Cholecystectomy Physical Exam - Vital signs Vitals: Temp Pulse Resp BP Pulse Ox 98.7 F 83 14 118/78 99 09/11/19 08:29 09/11/19 08:29 09/11/19 08:29 09/11/19 08:29 09/11/19 08:29 - Abdominal Tenderness: Tender - Right lower pelvic Course - Vital Signs Vital signs: Temp Pulse Resp BP Pulse Ox 98.7 F 83 14 118/78 99 09/11/19 08:29 09/11/19 08:29 09/11/19 08:29 09/11/19 08:29 09/11/19 08:29
[2019-09-11 10:09] LABS: APPEARANCE,URINE CLEAR; BILIRUBIN,URINE NEGATIVE (NEGATIVE); COLOR,URINE YELLOW; GLUCOSE, URINE NEGATIVE (NEGATIVE); KETONES,URINE NEGATIVE (NEGATIVE); LEUKOCYTE ESTERASE,URINE NEGATIVE (NEGATIVE); NITRITE,URINE NEGATIVE (NEGATIVE); PROTEIN,URINE 30 mg/dL (NEGATIVE); URINE SPECIFIC GRAVITY 1.019; UROBILINOGEN,URINE NEGATIVE mg/dL (<2.0)
--- NOTE | 2019-09-11 10:43 | RADIOLOGY REPORT (SQ) ---
EXAM DESCRIPTION: U/S NON OB PEL TV W/DOPPLER COMPLETED DATE/TIME: 09/11/2019 10:33 am REASON FOR STUDY: RLQ pain COMPARISON: None. TECHNIQUE: Dynamic and static grayscale images acquired of the pelvis via transvaginal approach and recorded on PACS. Additional selected color Doppler and spectral images recorded. LIMITATIONS: None. FINDINGS: UTERUS: Contour normal. No mass. ENDOMETRIAL STRIPE: No focal or generalized thickening. No masses. CERVIX: Nabothian cyst. RIGHT OVARY AND DOPPLER: Normal size. 1.8 cm cyst. No worrisome masses. Normal arterial vascular fl ow without evidence for torsion. LEFT OVARY AND DOPPLER: Normal size. 1.1 cm cyst. No worrisome masses. Normal arterial vascular pretty w without evidence for torsion. FREE FLUID: None noted. OTHER: No other significant finding. MEASUREMENTS: UTERUS: 3.2 x 4.1 x 6.3 cm. ENDOMETRIAL STRIPE: 6.5 mm. RIGHT OVARY: 2.1 x 3.5 x 4.0 cm. LEFT OVARY: 1.7 x 2.0 x 2.0 cm. IMPRESSION: SMALL BILATERAL OVARIAN CYSTS. OTHERWISE UNREMARKABLE TRANSVAGINAL PELVIC ULTRASOUND. TECHNICAL DOCUMENTATION: JOB ID: [id number] [employer]- All Rights Reserved Rev Reading location - IP/workstation name: [email or web address]
[2019-09-11 12:33] VITALS: BP 115/75
[2019-09-11 13:42] LABS: CHLAM PCR NOT DETECTED (NOT DETECT)
--- NOTE | 2019-09-11 14:25 | ER Document Report ---
Entered by KAREL FANG SCRIBE 09/11/19 1143 Acting as scribe for:MARYANNE REDDY MD ED General - General Chief Complaint: Abdominal Pain Stated Complaint: ABDOMINAL PAIN Time Seen by Provider: 09/11/19 09:26 Mode of Arrival: Ambulatory Information source: Patient Notes: This 34 year old female patient presents to the ED today with complaints of a fever with associated nausea and vomiting for the past x4 days. Patient also reports body aches, sneezing, rhinorrhea, and sneezing. Patient states that she thinks she has the flu. Patient denies a cough and states that nausea is better at this time. Patient reports clear vaginal discharge that is more than usual for the past couple of weeks. Patient states that she also has right-sided pelvic pain that comes and goes. Patient states that she has a history of ovarian cysts and that the pelvic pain is similar to when she had a ruptured cyst. Patient notes that she hasn't had a period for x1.5 months and that she does not take any control. Patient denies . TRAVEL OUTSIDE OF THE [place] IN LAST 30 DAYS: No - Related Data Allergies/Adverse Reactions: Penicillins Allergy (Verified 09/11/19 09:27) pineapple Allergy (Verified 09/11/19 09:26) Past Medical History - General Information source: Patient - Social History Smoking Status: Never Smoker Cigarette use (# per day): No Chew tobacco use (# tins/day): No Smoking Education Provided: No Frequency of alcohol use: None Drug Abuse: None Family History: Reviewed & Not Pertinent, CAD Patient has suicidal ideation: No Patient has homicidal ideation: No Renal/ Medical History: Reports: Hx Ovarian Cysts Psychiatric Medical History: Reports: Hx Bipolar Disorder, Hx Depression Past Surgical History: Reports: Hx Appendectomy, Hx Cholecystectomy, Hx Gastric Bypass Surgery Review of Systems - Review of Systems Constitutional: See HPI, Fever EENT: See HPI, Nose discharge, Other - Sneezing Cardiovascular: See HPI, Dizziness Respiratory: denies: Cough Gastrointestinal: See HPI, Nausea, Vomiting, Other - Pelvic pain Genitourinary: No symptoms reported Female Genitourinary: See HPI, Vaginal discharge. denies: Musculoskeletal: See HPI, Other - Body aches Skin: No symptoms reported Hematologic/Lymphatic: No symptoms reported Neurological/Psychological: No symptoms reported -: Yes All other systems reviewed and negative Physical Exam - Vital signs Vitals: Temp Pulse Resp BP Pulse Ox 98.7 F 83 14 118/78 99 09/11/19 08:29 09/11/19 08:29 09/11/19 08:29 09/11/19 08:29 09/11/19 08:29 - Notes Notes: PHYSICAL EXAMINATION: GENERAL: Well-appearing, well-nourished and in no acute distress. HEAD: Atraumatic, normocephalic. EYES: Pupils equal round and reactive to light, extraocular movements intact, sclera anicteric, conjunctiva are normal. ENT: nares patent, oropharynx clear without exudates. Moist mucous membranes. NECK: Normal range of motion, supple without lymphadenopathy LUNGS: Breath sounds clear to auscultation bilaterally and equal. No wheezes rales or rhonchi. HEART: Regular rate and rhythm without murmurs ABDOMEN: Soft. Positive bowel sounds. Exquisitely tender in the lower right lower quadrant pelvic region. Nontender in the suprapubic and left lower quadrant region. EXTREMITIES: Normal range of motion, no pitting or edema. No cyanosis. NEUROLOGICAL: Cranial nerves grossly intact. Normal speech, normal gait. Normal sensory, motor, and reflex exams. PSYCH: Normal mood, normal affect. SKIN: Warm, Dry, normal turgor, no rashes or lesions noted. Course - Vital Signs Vital signs: Temp Pulse Resp BP Pulse Ox 98.7 F 80 18 115/75 100 09/11/19 12:27 09/11/19 12:27 09/11/19 12:27 09/11/19 12:27 09/11/19 12:27 - Laboratory Laboratory results interpreted by me: 09/11/19 09:38 Urine Protein 30 H Urine Blood SMALL H Urine Ascorbic Acid 20 H Discharge - Discharge Clinical Impression: Viral syndrome, Myalgia, Pelvic pain Fever Qualifiers: Fever type: unspecified Qualified Code(s): R50.9 - Fever, unspecified Vomiting Qualifiers: Vomiting type: unspecified Vomiting Intractability: non-intractable Nausea presence: with nausea Qualified Code(s): R11.2 - Nausea with vomiting, unspecified Hematuria Qualifiers: Hematuria type: other microscopic Qualified Code(s): R31.29 - Other microscopic hematuria; R31.2 - Other microscopic hematuria Condition: Stable Disposition: HOME, SELF-CARE Additional Instructions: Viral Syndrome: The physician has diagnosed a viral infection. Viruses not only cause "colds," but can cause many different symptoms including generalized aching, fever, headache, cough, diarrhea, nausea, vomiting, and fatigue. The treatment, for the most part, is simply relief of symptoms. This means that antibiotics are usually not given. Rest, fluids, pain medications and, occasionally, medication for the specific symptoms that are most bothersome will be prescribed. Use good handwashing to avoid passing the virus to others. Shared toys should be cleaned with disinfectant. Clean the toilets, sinks, and counter surfaces in bathrooms. Launder clothing in hot water. Contact the physician if you develop any new or unusual symptoms such as severe headache, stiff neck, high fever, chest pain, productive cough, or shortness of breath. You should be rechecked if you don't see marked improvement within seven to 10 days. Pelvic Pain: There are many causes of pain in the pelvic area. The cause could be the tubes, ovaries, uterus, intestines, appendix, pelvic muscles and connective tissue, or the urinary tract. The cause of your pelvic pain is not clear. However, it seems safe to treat you outside the hospital. If the pain sounds like a temporary problem, we sometimes wait to see if it goes away. Other patients may need additional tests, such as pelvic ultrasound or cultures. Conditions may change. Call us or come back for reexamination if any problems occur, such as: (1) Pain that becomes more severe, steady, or becomes concentrated in one specific area. Also, pain that is more severe with movement or coughing. (2) Vomiting that persists or becomes more frequent. (3) Blood in the vomitus, urine, or bowel movements. Blood in the stool may have a tarry or black appearance. (4) Shaking chills or fever greater than 100 degrees. (5) The abdomen becomes more distended or swollen. (6) Bowel movements cease. (7) Heavy vaginal bleeding. The symptoms that you had started on Tuesday of fever, body aches, vomiting, dizziness, sneezing, are all likely due to a viral syndrome. The right lower pelvic pain that started yesterday may be related to the blood in the urine that was seen today. The ultrasound that was done showed small cyst on your ovaries, but nothing to explain your discomfort. You have elected not to do additional imaging studies at this time to clarify the reason for your right pelvic pain and blood in the urine. For now you should drink plenty of fluids and get plenty of rest. Follow-up with your primary care provider if all your symptoms do not seem to improve over the next few days. RETURN TO THE EMERGENCY ROOM IF ANY NEW OR WORSENING SYMPTOMS. Forms: Return to Work Scribe Attestation: 09/11/19 12:20 I personally performed the services described in the documentation, reviewed and edited the documentation which was dictated to the scribe in my presence, and it accurately records my words and actions. I personally performed the services described in the documentation, reviewed and edited the documentation which was dictated to the scribe in my presence, and it accurately records my words and actions.
== END 2019-09-11 12:27 | disposition home or self-care (01) ==
LOC: ER 08:22
DX: R10.2 Pelvic and perineal pain (principal); B34.9 Viral infection, unspecified; R31.29 Other microscopic hematuria; R50.9 Fever, unspecified; R11.2 Nausea with vomiting, unspecified; R06.7 Sneezing; J34.89 Other specified disorders of nose and nasal sinuses; R10.813 Right lower quadrant abdominal tenderness; R42 Dizziness and giddiness; R05 Cough; M79.10 Myalgia, unspecified site; N89.8 Other specified noninflammatory disorders of vagina; Z88.0 Allergy status to penicillin; Z91.018 Allergy to other foods
CPT/HCPCS: 36415; 76830; 81001; 81025; 87491; 87591; 93976